=== PATIENT | female | born 1955 ===

== ENCOUNTER 2023-09-10 07:00 | Outpatient (NON) | payer MEDICARE, OTHER, SELFPAY | END 2023-09-10 07:01 | disposition home or self-care (01) | PROVIDERS: PCP Family Medicine; Visit Provider Internal Medicine Gastroenterology | DX: Z12.11 Encounter for screening for malignant neoplasm of colon (principal); D12.5 Benign neoplasm of sigmoid colon | CPT/HCPCS: 88305 ==

== ENCOUNTER 2023-09-10 10:38 | Day surgery (SDC) | payer MEDICARE, OTHER, SELFPAY ==
[2023-08-25 07:11] VITALS: BMI 25.7
[2023-08-25 10:27] VITALS: BMI 25.5
[2023-09-10 11:05] VITALS: BP 157/76; PULSE 75; RESP 16; TEMP 37.3; O2SAT 99
[2023-09-10] MEDS: LACTATED RINGERS 1,000 ML 150 ML IV CONT (11:09)
--- NOTE | 2023-09-10 11:23 | P.PNAN_ITS ---
Anes - Initial Pre Proc Eval Procedure: Operation Date: 09/10/23 12:30 Proposed Procedures p Colonoscopy - Guero Booth MD Date/Time: 09/10/23 11:23 Surgeon: Guero Booth MD Pre Op Diagnosis: Neoplasm screening Patient Data Age: 68 Gender: F Height: 1.6 m Weight: 65.9 kg Last Vital Signs Temp 37.3 C 09/10/23 11:05 Pulse 75 09/10/23 11:05 Resp 16 09/10/23 11:05 BP 157/76 H 09/10/23 11:05 Pulse Ox 99 09/10/23 11:05 O2 Del Method Room Air 09/10/23 11:05 Allergies Allergy/AdvReac Type Severity Reaction Status Date / Time Penicillins AdvReac Unknown Rash Verified 09/10/23 11:02 Home Medications Medication Instructions Recorded Confirmed Type carvedilol 3.125 mg tablet 3.125 mg PO DAILY 08/25/23 09/10/23 History hydrochlorothiazide 12.5 mg tablet 12.5 mg PO DAILY 08/25/23 09/10/23 History rosuvastatin 10 mg tablet 10 mg PO DAILY 08/25/23 09/10/23 History Patient hx anesthesia problems: none Family hx anesthesia problems: none Results Review: All pre-operative results and documents have been reviewed as part of the pre- operative evaluation. [facility] Social History Social History Smoking status: Never smoker Alcohol intake: never Substance use: never Substance use type: does not use Living arrangements: with family Spiritual care concerns: No Anes - Eval Final PreProcedure Day of Procedure 09/10/23 11:23 Patient weight: normal and overweight Heart: regular rate and rhythm Lungs: clear to auscultation Airway: Mallampati scale class II Last oral intake: >/= 8 hours ASA classification: II Emergent: no Anesthetic plan: proceed Anesthesia type and monitoring: general GIVS and standard monitoring Results Review: All pre-operative results and documents have been reviewed as part of the pre- operative evaluation. Informed Consent: The patient's anesthetic plan and its attendant risks and benefits were discussed with the patient/family/POA. Questions were solicited and answers provided to the satisfaction of the patient/family/POA.
--- NOTE | 2023-09-10 11:41 | P.HP_ITS ---
History of Present Illness History of Present Illness Consent: Risks, benefits, and alternatives have been discussed and questions answered. Patient agrees to proceed with procedure. Chief complaint: Neoplasm screening Narrative: Jeannine Thomas is a 68 year old female presents for screening colonoscopy. Patient's current weight appetite and bowel movements are normal. Patient denies abdominal pain. She has had no bleeding. Family history noncontributory. Patient reports many years ago had a benign colon polyp removed at previous colonoscopy in [place]. Review of Systems Review of Systems: Review of systems is noncontributory. [facility] Social History Social History Smoking status: Never smoker Alcohol intake: never Substance use: never Substance use type: does not use Living arrangements: with family Spiritual care concerns: No Meds Home Medications and Allergies Home Medications Medication Instructions Recorded Confirmed Type carvedilol 3.125 mg tablet 3.125 mg PO DAILY 08/25/23 09/10/23 History hydrochlorothiazide 12.5 mg tablet 12.5 mg PO DAILY 08/25/23 09/10/23 History rosuvastatin 10 mg tablet 10 mg PO DAILY 08/25/23 09/10/23 History Allergies Allergy/AdvReac Type Severity Reaction Status Date / Time Penicillins AdvReac Unknown Rash Verified 09/10/23 11:02 Vital Signs Vital Signs - 24 hr 09/10/23 11:05 Temperature 99.1 F Pulse Rate 75 Respiratory Rate 16 Blood Pressure 157/76 H Pulse Oximetry 99 Oxygen Delivery Room Air Exam Narrative: Physical exam reveals patient to be alert. Vital signs stable. HEENT is unremarkable. Is anicteric. Lungs are clear to auscultation and percussion. Heart is without murmur or extra sounds. Abdomen sounds are present soft nontender with no organomegaly. Digital external rectal exam normal. Assessment and Plan Assessment and plan (1) Encounter for screening colonoscopy: Code(s): Z12.11 - Encounter for screening for malignant neoplasm of colon Status: Acute Assessment and Plan: Patient presents today for screening colonoscopy. Further recommendations may be given after endoscopy.
[2023-09-10 12:12] VITALS: PULSE 75; RESP 16; O2SAT 100
[2023-09-10 12:22] VITALS: BP 124/64; PULSE 70; RESP 15; O2SAT 100
[2023-09-10 12:32] VITALS: BP 136/72; PULSE 69; RESP 15; O2SAT 100
--- NOTE | 2023-09-10 12:38 | WPDANESPN ---
Anes - Prog Note Post-Op Date/Time: 09/10/23 12:38 Cardiovascular status: normal Respiratory status: normal Airway patency: baseline Mental status: baseline Post-Op hydration status: normal Vital Signs: Last Vital Signs Temp 37.3 C 09/10/23 11:05 Pulse 70 09/10/23 12:22 Resp 15 09/10/23 12:22 BP 124/64 09/10/23 12:22 Pulse Ox 100 09/10/23 12:22 O2 Del Method Room Air 09/10/23 12:22 Pain Score (VAS): 0 I/O: Intake & Output 09/09/23 09/10/23 09/10/23 23:59 07:59 15:59 Intake Total 400 Balance 400 Patient Feedback: Patient satisfied with anesthetic care.
== END 2023-09-10 12:56 | disposition home or self-care (01) ==
PROVIDERS: PCP Family Medicine; Visit Provider Internal Medicine Gastroenterology
PROC: 0DJD8ZZ Inspection of Lower Intestinal Tract, Via Natural or Artificial Opening Endoscopic (ICD-10-PCS; CPT 45378; principal; 2023-09-10 12:30)
DX: Z12.11 Encounter for screening for malignant neoplasm of colon (principal); D12.5 Benign neoplasm of sigmoid colon; K57.30 Diverticulosis of large intestine without perforation or abscess without bleeding; K64.8 Other hemorrhoids
CPT/HCPCS: 45385